=== PATIENT | female | born 1935 | race Caucasian/White ===

== ENCOUNTER 2019-07-09 08:59 | Outpatient (CLI) | payer MEDICARE, MEDICAID, SELFPAY ==
--- NOTE | 2019-07-09 | MR_ITS ---
WS: [id number] MRI BRAIN WITH AND WITHOUT CONTRAST HISTORY: BENIGN NEOPLASM OF MENINGIOMA COMPARISON: 06/07/2018, 05/09/2017 TECHNIQUE: Multiplanar imaging performed through the brain with Prohance 15 ml's IV. No acute infarcts are seen. Cruz-white matter differentiation is well preserved. Moderate chronic amrik rovascular ischemic changes in the periventricular white matter. Bilateral moderate microvascular alba nges in the prabha. No significant progression of microvascular disease. No susceptibility artifacts or prior lacunar infarcts. Ventricles and extra-axial spaces are normal. 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 Again noted is a moderately enhancing extra-axial mass over the RIGHT frontal lobe with a dural tail. Mass measures 8 x 6 x 4 mm. Slight mass effect upon the frontal cortex. No edema or progression. Dural venous sinuses are normal. Paranasal sinuses: Well aerated with no significant disease. Mastoid air cells: Normal. Calvarium and scalp: Normal. MR/MR head wo/w con [id number] IMPRESSION: 1. 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 2. Mild to moderate chronic microvascular ischemic changes in the supratentori al white matter and also in the prabha bilaterally. Stable with no progression.
== END 2019-07-09 09:00 | disposition home or self-care (01) ==
LOC: RADWPI 09:07
PROVIDERS: Family Provider Family Medicine; PCP Family Medicine; Visit Provider Specialist
DX: D32.0 Benign neoplasm of cerebral meninges (principal)
CPT/HCPCS: 70553; A9579

== ENCOUNTER 2023-08-18 13:33 | Emergency (ER) | payer MEDICARE, MEDICAID, SELFPAY ==
[2023-08-18 13:43] VITALS: BP 159/92; PULSE 87; RESP 18; TEMP 36.4; O2SAT 96; BMI 26.2
--- NOTE | 2023-08-18 14:27 | ED_ITS ---
HPI - Fall General: Chief Complaint: Fall Stated Complaint: head injury Time Seen by Provider: 08/18/23 14:22 Source: patient Mode of arrival: ambulatory Limitations: no limitations History of Present Illness: 87-year-old female states she fell at [facility] last night at 8 PM. States she did hit her head she does have bruising to forehead and right a she denies any loss conscious but states she had a mild headache today she rates a 4 out of 10 she is not on any blood thinners. She denies any neck pain she does have a skin tear to her right wrist but denies any pain to that wrist. Associated symptoms-after fall: Reports headache(s); Denies abdominal pain, chest pain or neck pain Review of Systems Const: Denies: fever(s), chills, body aches or change in appetite Eyes: Denies: blurry vision ENMT: Denies: throat pain or dental pain Card: Denies: chest pain Resp: Denies: dyspnea GI: Denies: abdominal pain, nausea, vomiting or diarrhea Musc: Denies: neck pain or back pain Skin/Breast: Denies: rash Neuro: Reports: headache(s) [facility] ED PFSH: Family History (Updated 05/11/19 @ 13:04 by Winifred Barrientos RN) Mother Tuberculosis Father Alzheimer disease Parkinsonism Physical Exam Const: COMMON NORMALS: no acute distress, patient oriented x3 and healthy appearing HENMT: COMMON NORMALS: normocephalic HEAD & SCALP: normocephalic OTHER: Contusion noted to right forehead and eye Eye: COMMON NORMALS: Equal, round and reactive pupils present and EOMs intact bilaterally PUPIL: Yes Equal, round and reactive pupils present Neck/C-Spine: COMMON NORMALS: full ROM and supple Chest: COMMONS NORMALS: normal inspection of the chest and normal palpation of entire chest wall Resp: COMMON NORMALS: normal respiratory effort, No retractions, No use of accessory muscles and clear to auscultation bilaterally AUSCULTATION: clear to auscultation bilaterally Cardio: COMMON NORMALS: regular rate, regular rhythm and No murmurs present (Cardio) RATE: regular rate RHYTHM: regular rhythm Extremity: COMMON NORMALS: normal to inspection and full ROM Neuro: COMMON NORMALS: patient oriented x3, moves all extremities and no focal motor deficits Psych: COMMON NORMALS: mental status grossly normal, Normal thought process present and cooperative THOUGHT PROCESS: Normal thought process present Skin: COMMON NORMALS: no rashes or lesions noted NARRATIVE SKIN EXAM: Skin tear noted to right wrist GENERAL SKIN EXAM: no rashes or lesions noted Course Vital Signs: Vital signs: Vital Signs Temperature 97.6 F 08/18/23 13:43 Pulse Rate 85 08/18/23 14:29 Respiratory Rate 18 08/18/23 13:43 Blood Pressure 168/88 08/18/23 14:29 Pulse Oximetry 96 08/18/23 14:29 Oxygen Delivery Me thod Room Air 08/18/23 14:29 MDM - Fall Medical Decision Making Patient presents here with a hemorrhagic contusion and subarachnoid hemorrhage from a fall and head injury I spoke to [facility] will transfer there from ER to ER for higher level of care. Medical Records I reviewed the patient's medical records. All radiology interpretation(s) finalized by discharge Critical Care Time Critical Care Time: Critical Care Time: Yes Total Critical Care Time: 40 Attestation: The high probability of a clinically significant, sudden or life threatening deterioration of the patient's neuro system(s) required my full and direct attention, intervention and personal management. The critical care time is as shown. This time is in addition to time spent performing any reported procedures but includes the following: [x] Data and vital sign review and interpretation [x] Patient assessment, examination and intervention [x] Documentation [x] Medication orders and management Discharge Plan Discharge Patient Disposition: Xfer Short-Term Hosp Clinical Impression: Subarachnoid hemorrhage, Fall Condition: Stable Prescriptions: No Action metformin 500 mg tablet 500 mg PO BEDTIME amlodipine 5 mg tablet 5 mg PO QAM levothyroxine 75 mcg tablet 75 mcg PO BEDTIME simvastatin 20 mg tablet 20 mg PO BEDTIME metoprolol tartrate 50 mg tablet 50 mg PO BID irbesartan 75 mg tablet 75 mg PO DAILY Vitamin B-12 1,000 mcg Tablet 1,000 mcg PO DAILY melatonin 3 mg Tablet 3 mg PO BEDTIME Vitamin D3 25 mcg (1,000 unit) Capsule 25 mcg PO DAILY Referrals: Domenic Henderson MD [Primary Care Provider] - Coding Level of Care Code ED Collarette Separator for Juan Luis Schroeder
--- NOTE | 2023-08-18 14:27 | CT_ITS ---
WS: [id number] CT HEAD NONCONTRAST HISTORY: fall TECHNIQUE: Contiguous axial imaging performed through the brain in 2.5 mm imaging. Bone and soft tiss ue windows. Sagittal and coronal reformats reviewed. All CT scans at [facility] use at least one of these dose optimization techniques: automated exposure control; mA and/or kV adjustment per pa tient size (includes targeted exams where dose is matched to clinical indication); or iterative recon struction. DLP: 1700.44 mGy.cm COMPARISON: MRI brain 07/09/2019 Acute focal cortical hemorrhagic contusion involving the anterior medial RIGHT frontal lobe cortex ad jacent to the interhemispheric falx. Contusion measures 9 x 6 mm. There may be a component of subarac hnoid blood at the same location. Patient has a known RIGHT frontal lobe meningioma which has been pr eviously described which is more inferior along the dura over the RIGHT frontal lobe. Mild bilateral frontal lobe atrophy. Mild small vessel disease. Ventricles: Normal size with no hydrocephalus. Paranasal sinuses: As visualized are clear. Mastoid air cells: Well pneumatized. Calvarium and scalp: No skull fracture. There is a very large acute soft tissue hematoma centered ove r the RIGHT zygomatic arch. Hematoma extends anteriorly over the orbit and globe to the midline and p osteriorly to the ear. IMPRESSION: 1. Acute very tiny hemorrhagic contusion in the anteromedial RIGHT frontal lobe cortex with adjacent small subarachnoid blood. Hemorrhagic contusion measures 9 x 6 mm. 2. Large soft tissue hematoma centered over the RIGHT zygomatic arch with extension anteriorly and i nferiorly. Notified Justyna Schwartz MD at 08/18/2023 3:06 PM.
--- NOTE | 2023-08-18 14:27 | CT_ITS ---
WS: [id number] CT FACIAL BONES HISTORY: fall TECHNIQUE: Images obtained from the supraorbital location through the mandible. Soft tissue and bone windows are reviewed. Coronal and sagittal reformats have also been submitted. DLP: 1700.[address] scans at [facility] use at least one of these dose optimization techniques: automated e xposure control; mA and/or kV adjustment per patient size (includes targeted exams where dose is matc hed to clinical indication); or iterative reconstruction. COMPARISON: None available. No nasal bone fracture. No zygomatic fracture. No air-fluid levels within the sinuses. There is mild mucoperiosteal thickening in the RIGHT maxillary sinus. Orbits and globes are negative. No mandibular or maxillary fracture. There is a large soft tissue hematoma centered over the RIGHT zygomatic arch with extension both ante rior and posterior. The included visualized cervical spine is negative. IMPRESSION: 1. No facial bone fracture. 2. Large soft tissue hematoma centered over the RIGHT zygomatic arch.
[2023-08-18 14:29] VITALS: BP 168/88; PULSE 85; O2SAT 96
[2023-08-18 15:30] VITALS: BP 156/104; PULSE 85; O2SAT 96
[2023-08-18 15:47] LABS: Basophils % 0.4 %; Eosinophils % 0.4 %; Lymphocytes # 1.3 10^3/uL (0.8-4.8); Lymphocytes % 12.5 %; Mean Corpuscular HGB Conc 32.1 g/dL (30-55); Mean Corpuscular Hemoglobin 28.7 pg (27-33); Mean Corpuscular Volume 89.6 fl (85-98); Monocytes # 0.8 10^3/uL (0.2-0.9); Monocytes % 7.9 %; Neutrophils # 7.93 10^3/uL (1.8-7.7); Neutrophils % 78.4 %; Nucleated Red Blood Cells % 0 %; Platelet Count 180 10^3/cmm (157-399); Red Blood Count 5.36 10^6/uL (3.85-5.65); Red Cell Distribution Width 15.5 % (12.1-15.1); White Blood Count 10.11 10^3/uL (3.29-11.43)
[2023-08-18] MEDS: tetanus-dipt-pertussis 0.5 mL SDV IM (15:52)
[2023-08-18 15:59] LABS: Anion Gap 16.6 (5-19); Blood Urea Nitrogen 16 mg/dL (8-23); Calcium 9.1 mg/dL (8.5-10.5); Carbon Dioxide 26 mmol/L (22-29); Chloride 102 mmol/L (98-107); Creatinine Clr Calc Pharmacy 24.5843; Glucose 108 mg/dL (65-115); INR 0.99 (0.8-1.2); Osmolality Calculated 292 mOsm/kg (285-295); Potassium 4.6 mmol/L (3.5-5.1); Sodium 140 mmol/L (136-145)
[2023-08-18 16:03] VITALS: PULSE 89; O2SAT 95
[2023-08-18 16:17] VITALS: PULSE 85; O2SAT 96
== END 2023-08-18 16:19 | disposition short-term general hospital (02) ==
PROVIDERS: Emergency Provider Emergency Medicine; PCP Family Medicine
DX: S06.6XAA Traumatic subarachnoid hemorrhage with loss of consciousness status unknown, initial encounter (principal); W19.XXXA Unspecified fall, initial encounter; S00.83XA Contusion of other part of head, initial encounter; S61.511A Laceration without foreign body of right wrist, initial encounter; Z23 Encounter for immunization
CPT/HCPCS: 36415; 70450; 70486; 80048; 85025; 85610; 90715; 99284